=== PATIENT | male | born 2000 | race Caucasian/White ===

== ENCOUNTER 2024-07-04 18:48 | Emergency (ER) | payer OTHER ==
[2024-07-04] MEDS ORDERED: Morphine 4 MG/ML VIAL ONE (19:47)
[2024-07-04] MEDS ORDERED: Lidocaine 1% (PF) 30 ML VIAL ONE (19:47)
[2024-07-04] MEDS ORDERED: Ketorolac Tromethamine 30 MG (1 mL) VIAL ONE (19:47)
== END 2024-07-04 21:41 | disposition home or self-care (01) ==
LOC: CSHERS 18:48
DX: L05.01 Pilonidal cyst with abscess (principal)
CPT/HCPCS: 10080; 96372; J1885; J2272

== ENCOUNTER 2024-07-07 16:59 | Emergency (ER) | payer OTHER | END 2024-07-07 19:00 | disposition home or self-care (01) | LOC: CSHERS 16:59 | DX: Z48.00 Encounter for change or removal of nonsurgical wound dressing (principal) ==